=== PATIENT | female | born 1985 | race Two or more races ===

== ENCOUNTER 2022-12-22 16:01 | Emergency (ER) | payer OTHER ==
[~2022-12-22] VITALS: Ht 162.6 cm; Wt 66.7 kg
[2022-12-22] MEDS ORDERED: PRENATABS RX T1 EACH (16:24)
[2022-12-22] MEDS ORDERED: PROMETRIUM200 MG (16:25)
[2022-12-22] MEDS ORDERED: LEVOTHYROXINE25 MCG PO (16:25)
== END 2022-12-22 17:53 | disposition home or self-care (01) ==
LOC: ER 16:01
DX: Z34.90 Encounter for supervision of normal pregnancy, unspecified, unspecified trimester (principal); A49.3 Mycoplasma infection, unspecified site; E05.80 Other thyrotoxicosis without thyrotoxic crisis or storm